=== PATIENT | male | born 1985 | race African-American/Black ===

== ENCOUNTER 2021-02-08 00:36 | Emergency (ER) | payer BC ==
[~2021-02-08] VITALS: Ht 185.4 cm; Wt 100.0 kg
[2021-02-08 01:00] VITALS: BP 130/76
[2021-02-08] MEDS ORDERED: PREDNISONE 20MG TABLET PO ONE (01:00)
[2021-02-08] MEDS ORDERED: IPRATROPIUM/ALBUTEROL 0.5-3(2.5)MG/3ML NEB HHN ONE (01:00)
[2021-02-08] MEDS ORDERED: DEXAMETHASONE 10 MG/ML VIAL IM ONE (01:15)
[2021-02-08] MEDS ORDERED: ALBU6.7H9 INH (01:56)
== END 2021-02-08 02:12 | disposition home or self-care (01) ==
LOC: ER 00:36
DX: J45.901 Unspecified asthma with (acute) exacerbation (principal); J45.909 Unspecified asthma, uncomplicated
CPT/HCPCS: 94640; 96372; 99283; J1100; Z7610